=== PATIENT | male | born 1945 | race Caucasian/White ===

== ENCOUNTER 2022-01-12 09:52 | Emergency (ER) | payer OTHER ==
[2022-01-12 10:14] VITALS: BP 143/72; PULSE 88; RESP 18; TEMP 97.5; BMI 22.6
== END 2022-01-12 10:56 | disposition home or self-care (01) ==
LOC: FER 09:52
DX: R06.02 Shortness of breath (principal)
CPT/HCPCS: 71045-TC-FY; 93005; 99284-25